=== PATIENT | female | born 2000 | race Caucasian/White ===

== ENCOUNTER 2024-03-21 13:39 | Emergency (ER) | payer MEDICAID ==
[~2024-03-21] VITALS: Ht 165.1 cm; Wt 65.0 kg
[2024-03-21 13:44] VITALS: TEMP 98; O2SAT 100
[2024-03-21 15:37] LABS: BASOPHILS % 0.4 % (0.0-2.0); EOSINOPHILS % 0.4 % (0.0-5.0); HEMATOCRIT. 39.7 % (36.0-48.0); HEMOGLOBIN. 13.3 g/dL (12.0-16.0); LYMPHOCYTES % 15.4 % (20.0-50.0); MEAN CORPUSCULAR HGB CONC 33.4 g/dL (31.0-37.0); MEAN CORPUSCULAR VOLUME 86.8 fL (81.0-99.0); MONOCYTES % 4.4 % (2.0-8.0); NEUTROPHILS % 79.4 % (40.0-76.0); PLATELET 301 x1000/uL (130-400); RED BLOOD CELL COUNT 4.58 mill/uL (4.2-5.4); RED CELL DISTRIBUTION WIDTH 13.9 % (11.6-14.6); WHITE BLOOD COUNT 12.1 x1000/uL (4.5-11.0)
[2024-03-21 15:43] LABS: CHLORIDE 109 mEq/L (98-107); POTASSIUM 3.9 mEq/L (3.5-5.1); SODIUM 140 mEq/L (136-145)
[2024-03-21 15:44] LABS: CARBON DIOXIDE 23 mEq/L (21-32)
[2024-03-21 15:45] LABS: CALCIUM 9.8 mg/dL (8.7-10.4)
[2024-03-21 15:49] LABS: CREATININE 0.7 mg/dL (0.6-1.0); GLUCOSE 119 mg/dL (70-105); UREA NITROGEN BLOOD 9 mg/dL (9-23)
[2024-03-21 15:58] LABS: HCG SCREEN NEGATIVE
[2024-03-21 16:45] LABS: TROPONIN I HIGH SENSITIVITY < 4 ng/L (3.0-34)
[2024-03-21] MEDS ORDERED: IBUP-2029 MT (17:59)
[2024-03-21 18:12] VITALS: BP 129/84; PULSE 100; RESP 18; O2SAT 98
== END 2024-03-21 18:49 | disposition home or self-care (01) ==
LOC: ER 13:39
DX: R07.89 Other chest pain (principal); R55 Syncope and collapse
CPT/HCPCS: 36415; 71045; 80048; 84484; 84703; 85025; 93005; 99285